=== PATIENT | male | born 1970 | race Two or more races ===

== ENCOUNTER 2023-08-17 05:45 | Day surgery (SDC) | payer OTHER ==
[~2023-08-17 05:45] MED LIST: COZAAR100 MG PO
[2023-08-17] MEDS ORDERED: PERCOCET 5-3251 EACH PO (08:40)
[2023-08-17] MEDS ORDERED: RECTICARE30 GM TOP (08:41)
[2023-08-18] MEDS ORDERED: TAMS0.4C PO (06:48)
== END 2023-08-17 16:35 | disposition home or self-care (01) ==
LOC: CIR.AMB 05:45
PROVIDERS: ATTEND Surgery
DX: K64.2 Third degree hemorrhoids (principal); K62.89 Other specified diseases of anus and rectum; R19.4 Change in bowel habit; Z20.822 Contact with and (suspected) exposure to COVID-19; I10 Essential (primary) hypertension

== ENCOUNTER 2023-08-18 00:06 | Emergency (ER) | payer OTHER ==
[~2023-08-18] VITALS: Ht 175.3 cm; Wt 93.0 kg
[~2023-08-18 00:06] MED LIST changes: +PERCOCET 5-3251 EACH PO; +RECTICARE30 GM TOP
[2023-08-18 01:23] LABS: PH,URINE 6.5 (5.0-8.0); URINE APPEARANCE Clear; URINE BILIRRUBIN Negative (NEGATIVE); URINE BLOOD Large; URINE COLOR Yellow; URINE GLUCOSE Negative (NEGATIVE); URINE LEUKOCYTE Trace; URINE NITRATE Negative; URINE PROTEIN Trace (NEGATIVE); URINE UROBILINOGEN 0.2 E.U./dl
[2023-08-18 01:27] LABS: URINE BACTERIA 20.1 uL (0.0-1933); URINE EPITHELIAL CELLS 1.8 uL (0.0-38.8); URINE WBC 28.8 uL (0.0-23.2)
[2023-08-18] MEDS ORDERED: TAMS0.4C PO (06:48)
== END 2023-08-18 07:14 ==
LOC: ER 00:06
PROVIDERS: General Practice
DX: R33.8 Other retention of urine (principal)